=== PATIENT | female | born 1990 | race Caucasian/White ===

== ENCOUNTER → 2017-03-29 17:10 | Observation (INO) ==
[2017-03-29 15:10] LABS: Bilirubin,Urine Negative (Negative); Blood,Urine Negative (Negative); Clarity,Urine Turbid (Clear); Color,Urine Yellow (Yellow); Glucose,Urine (UA) Normal (Normal); Ketones,Urine Negative (Negative); Leukocyte Esterase,Urine Negative (Negative); Nitrite,Urine Negative (Negative); Protein,Urine Negative (Neg-Trace); Specific Gravity,Urine 1.018 (1.010-1.025)
[2017-03-29 15:13] LABS: Bacteria,Urine None Seen per hpf (None-Few); Hyaline Casts,Urine Few per lpf (None-Few); Squamous Epithelial Cell,Urine Many per lpf (None-Few); WBC,Urine 0-3 per hpf (0-3)
[2017-03-29 15:32] LABS: RBC,Urine 0-3 per hpf (0-3)
--- NOTE | 2017-03-29 15:35 | OB/GYN Progress Note ---
Date of Encounter: 03/29/17 Time of Encounter: 15:33 - Assessment and Plan (1) 33 weeks gestation of Current Visit: Yes Status: Acute admit for labor evaluation (2) uterine contractions in third trimester, antepartum Current Visit: Yes Status: Acute IV fluids, Steroids IM patient scheduled in office tomorrow for second dose. Subjective - Subjective Principal diagnosis: labor evaluation Interval history: Patient is 26 y/o at 33w5d presents to labor and delivery from Dr. Nicole for labor evaluation. Patient reported history of contractions and then after intercourse today they became more frequent and stronger. Patient had SVE by Dr. Nicole and was 2 cm dilated. Patient denies any VB or LOF. Patient reports +FM. Patient has history of 37 & 38 week delivery. Antepartum ROS: movement normal, no loss of fluid, no vaginal bleeding, no contractions Objective - Vital Signs Vital Signs: Intake and Output 03/28/17 03/29/17 03/29/17 23:59 07:59 15:59 Other: Weight 53.3 kg Patient Weight 03/29/17 23:59 Weight 53.3 kg - Exam FHR: auscultation normal, category 1 FHR comments: 135 bpm moderate variability, contractions 4-4.5 min apart Auscultation: bilateral: normal Abdomen: Present: normal appearance, soft, gravid Uterus: Present: normal Cervical dilation: [address] Nicole in office - Labs Labs: Abnormal lab results Urine Clarity Turbid (Clear) A 03/29/17 15:01 Urine Urobilinogen 4.0 mg/dL (Normal) H 03/29/17 15:01 Ur Squamous Epith Cells Many per lpf (None-Few) H 03/29/17 15:01
[2017-03-29 15:59] LABS: Basophils % 0.3 %; Eosinophils # 0.1 K/mcL (0.0-0.6); Hematocrit 30.3 % (35.3-44.9); Hemoglobin 10.4 g/dL (11.5-15.4); Immature Granulocytes % 0.9 % (0-4); Immature Platelets 3.5 % (1.1-6.1); Lymphocytes # 2.1 K/mcL (0.6-4.6); Lymphocytes % 22.4 %; Mean Corpuscular HGB Conc 34.3 g/dL (31.6-35.5); Mean Corpuscular Hemoglobin 27.7 pg (28.0-33.3); Mean Corpuscular Volume 80.8 fL (83.0-100.0); Mean Platelet Volume 9.6 fL (9.4-12.4); Monocytes # 0.5 K/mcL (0.0-1.3); Monocytes % 5.3 %; Neutrophils # 6.5 K/mcL (1.6-8.9); Platelet Count 233 K/mcL (140-400); Red Blood Count 3.75 M/mcL (3.82-4.97); Red Cell Distribution Width 13.6 % (11.5-14.5); Segmented Neutrophils % 70.1 %
--- NOTE | 2017-03-29 16:56 | Discharge Summary ---
Date of Encounter: 03/29/17 Time of Encounter: 16:56 - Discharge Diagnosis (1) 33 weeks gestation of Priority: Primary Status: Acute Comments: admitted for labor evaluation (2) uterine contractions in third trimester, antepartum Priority: Secondary Status: Acute Comments: steroids administered. Reactive NST - Discharge Medications Home Medications: Vit/Iron Fumarate/FA [ Tablet] 1 each PO DAILY 04/08/16 [ History] Allergies/Adverse Reactions: Allergies Iodinated Contrast- Oral and IV Dye [Iodinated Contrast Media - IV Dye] Allergy (Verified 04/08/16 16:39) Rash Penicillins Allergy (Verified 04/08/16 16:38) Difficulty Breathing Data Procedures and tests throughout hospitalization: Laboratory Tests 03/29/17 03/29/17 03/29/17 15:01 15:40 15:50 WBC 9.2 RBC 3.75 L Hgb 10.4 L Hct 30.3 L MCV 80.8 L D MCH 27.7 L MCHC 34.3 RDW 13.6 Plt Count 233 MPV 9.6 Immature Gran % 0.9 Seg Neutrophils % 70.1 Lymphocytes % 22.4 Monocytes % 5.3 Eosinophils % 1.0 Basophils % 0.3 Neutrophils # 6.5 Lymphocytes # 2.1 Monocytes # 0.5 Eosinophils # 0.1 Basophils # 0.0 Immature Plt Fraction 3.5 Urine Color Yellow Urine Clarity Turbid A Urine pH 7.0 Ur Specific Temple 1.018 Urine Protein Negative Urine Glucose (UA) Normal Urine Ketones Negative Urine Blood Negative Urine Nitrite Negative Urine Bilirubin Negative Urine Urobilinogen 4.0 H Ur Leukocyte Esterase Negative Urine Microscopic RBC 0-3 Urine Microscopic WBC 0-3 Ur Squamous Epith Cells Many H Urine Bacteria None Seen Hyaline Casts Few Ur Culture Indicated? NO Specimen Rejected MCV Delta Labs on day of discharge: Labs from last 24 hours 03/29/17 03/29/17 03/29/17 15:50 15:40 15:01 WBC 9.2 RBC 3.75 L Hgb 10.4 L Hct 30.3 L MCV 80.8 L D MCH 27.7 L MCHC 34.3 RDW 13.6 Plt Count 233 MPV 9.6 Immature Gran % 0.9 Seg Neutrophils % 70.1 Lymphocytes % 22.4 Monocytes % 5.3 Eosinophils % 1.0 Basophils % 0.3 Neutrophils # 6.5 Lymphocytes # 2.1 Monocytes # 0.5 Eosinophils # 0.1 Basophils # 0.0 Immature Plt Fraction 3.5 Urine Color Yellow Urine Clarity Turbid A Urine pH 7.0 Ur Specific Temple 1.018 Urine Protein Negative Urine Glucose (UA) Normal Urine Ketones Negative Urine Blood Negative Urine Nitrite Negative Urine Bilirubin Negative Urine Urobilinogen 4.0 H Ur Leukocyte Esterase Negative Urine Microscopic RBC 0-3 Urine Microscopic WBC 0-3 Ur Squamous Epith Cells Many H Urine Bacteria None Seen Hyaline Casts Few Ur Culture Indicated? NO Specimen Rejected MCV Delta Date of admission: 03/29/17 14:27 Primary care physician: SISSY Murry Discharging clinician: Cinda Alvarado Anticipated date of discharge: 03/29/17 - Patient Status Disposition: Home, Self-Care Condition: Good Functional capacity at discharge: independent ambulation - Discharge Instructions Follow Up With: Isabella Beavers CNP [Primary Care Provider] - Ricardo Nicole MD [Partnered Physician] - - Diet and Activity Activity: increase activity as tolerated Diet: regular diet Hospital Course [facility] Time Attestation: Total time spent providing and/or coordinating discharge services: Time Spent: Less than 30 minutes Exam - Constitutional General appearance IM: A&O X 3, pleasant, answers questions appropriately - Other Additional findings: SVE: 1.5/80/-2, no cervical change, no bloody show noted. Patient reports contractions has slowed down. FHR 140 bpm moderate variability +15x15 accels no decels noted. Irregular contractions. Reactive. NST - VTE Reasons for not Prescribing Prophylaxis: Treatment not Indicated - Low risk for VTE
[~2017-03-29 17:10] MED LIST: Betamethasone Acet/SodPhos 6 MG/ML MDV IM SCH; Ringers Solution, Lactated 1,000 ML IVC ONE
== END | disposition home or self-care (01) ==
LOC: 1NENULAB
PROVIDERS: ADMIT Obstetrics & Gynecology; ATTEND Obstetrics & Gynecology

== ENCOUNTER 2017-05-01 12:12 | Inpatient (IN) ==
[2017-05-01] MEDS ORDERED: Oxytocin 20 units/ LR 1000 mL 20 UNIT/1,000 ML BAG IVC ONE (12:21)
[2017-05-01] MEDS ORDERED: Lidocaine 1% 20 ML MDV ONE (12:47)
[2017-05-01] MEDS: Oxytocin 20 units/ LR 1000 mL 20 UNIT/1,000 ML BAG IVC SCH ×2 (12:53→14:33)
--- NOTE | 2017-05-01 13:02 | OB/GYN History & Physical ---
Date of Encounter: 05/01/17 Time of Encounter: 13:00 Assessment and Plan (1) Active labor at term Current visit: Yes Status: Acute (2) Rh negative status during in third trimester Current visit: Yes Status: Acute (3) Short interval between pregnancies affecting , antepartum Current visit: Yes Status: Acute (4) 38 weeks gestation of Current visit: No Status: Acute History of Present Illness HPI: Ms. Bagley is a 26 year old female with an EDC of 05/12/17 at 38 3/7 weeks EGA presenting to L&D in active labor and completely dilated. Very uncomfortable. Onset of contractions around 0830 hours this a.m. PN course uncomplicated. GBS negative. Rubella Immune, Rh negative. Past Med Surg Social Fam HX - Past Medical History Medical history: no medical history Psychiatric history: no psych history - Past Surgical History Surgical History: no surgical history - Social History Smoking Status: Former smoker Smokeless Tobacco Status: No Alcohol use: none Drug use: none - Family History Mother Living Status: Still Living Hx Family Cardiac Disorders: No Hx Family Respiratory Disorders: No Hx Family Cancer: No Hx Family GI Disorders: No Hx Family Endocrine Disorder: No Hx Family Neuromuscular Disorders: No Hx Family Neurologic Disorders: No Hx Family HEENT Disorders: No Hx Family Autoimmune Disorders: No Medications and Allergies Vit/Iron Fumarate/FA [ Tablet] 1 each PO DAILY 04/08/16 [ History] Allergies Iodinated Contrast- Oral and IV Dye [Iodinated Contrast Media - IV Dye] Allergy (Verified 04/08/16 16:39) Rash Penicillins Allergy (Verified 04/08/16 16:38) Difficulty Breathing Results All other labs normal.
--- NOTE | 2017-05-01 13:06 | OB/GYN Procedure Note ---
Delivery - Delivery Date: 05/01/17 Provider: Bill Hansen Intrapartum events: precipitous labor- <3hr Delivery induction: none Delivery monitor: external FHT, external uterine Anesthesia: none Estimated Blood Loss: 100 - Infant (s) Infant A Infant Delivery Date: 05/01/17 Delivery Time: 12:49 Presentation: vertex Position: NORA Route of delivery: Gender: Female Viability: Viable Pounds: 6 Ounces: 0 Weight Gram: 2725 kg at 1 minute: 9 at 5 mins: 9 Shoulder Dystocia: not encountered Specimens collected: cord blood Placenta: spontaneous Cord: 3 umbilical vessels - Repair Episiotomy: none Laceration Description: None - Complications Delivery complications: none - Disposition Mom disposition: stable in LDR disposition: stable in LDR - Comments Comments: Patient arrived to labor and delivery completely dilated and in active labor within an hour she had spontaneous rupture the membranes was a spontaneous vaginal delivery of a viable female infant. scores are 9 and 9 at one and 5 minutes respectively, and the infant weighed 6 pounds. The placenta delivered spontaneously and appeared to be intact. All sponge needle and is Reported as correct. Estimated blood loss 100 mL. No lacerations were present. No shoulder dystocia was encountered, no nuchal cord was present.
[2017-05-01] MEDS ORDERED: Rho Immune Globulin 1,500 UNIT SYRINGE IM PRN (13:14)
[2017-05-01] MEDS ORDERED: Acetaminophen 325 MG TABLET PO PRN (13:14)
[2017-05-01] MEDS ORDERED: Naloxone 0.4 MG/ML INJ IVP PRN (13:17)
[2017-05-01] MEDS: Ibuprofen 600 MG TABLET PO PRN ×2 (13:31→20:33)
[2017-05-01 13:53] LABS: Basophils % 0.2 %; Eosinophils % 0.2 %; Hematocrit 34.5 % (35.3-44.9); Hemoglobin 11.7 g/dL (11.5-15.4); Immature Granulocytes % 0.6 % (0-4); Lymphocytes # 2.2 K/mcL (0.6-4.6); Lymphocytes % 19.1 %; Mean Corpuscular HGB Conc 33.9 g/dL (31.6-35.5); Mean Corpuscular Hemoglobin 26.1 pg (28.0-33.3); Mean Platelet Volume 10.5 fL (9.4-12.4); Monocytes # 0.4 K/mcL (0.0-1.3); Monocytes % 3.7 %; Neutrophils # 8.8 K/mcL (1.6-8.9); Platelet Count 216 K/mcL (140-400); Red Blood Count 4.48 M/mcL (3.82-4.97); Red Cell Distribution Width 14.5 % (11.5-14.5); Segmented Neutrophils % 76.2 %
[2017-05-02] MEDS: Ibuprofen 600 MG TABLET PO PRN (03:39)
[2017-05-02 05:32] LABS: Basophils % 0.4 %; Eosinophils # 0.1 K/mcL (0.0-0.6); Eosinophils % 0.9 %; Hematocrit 28.7 % (35.3-44.9); Immature Granulocytes % 0.7 % (0-4); Lymphocytes # 3.2 K/mcL (0.6-4.6); Lymphocytes % 29.8 %; Mean Corpuscular HGB Conc 33.1 g/dL (31.6-35.5); Mean Corpuscular Hemoglobin 25.9 pg (28.0-33.3); Mean Corpuscular Volume 78.2 fL (83.0-100.0); Mean Platelet Volume 10.2 fL (9.4-12.4); Monocytes # 0.6 K/mcL (0.0-1.3); Monocytes % 5.7 %; Neutrophils # 6.7 K/mcL (1.6-8.9); Platelet Count 193 K/mcL (140-400); Red Blood Count 3.67 M/mcL (3.82-4.97); Red Cell Distribution Width 14.4 % (11.5-14.5); Segmented Neutrophils % 62.5 %
[2017-05-02 05:36] LABS: Hemoglobin 9.5 g/dL (11.5-15.4)
[2017-05-02 08:03] VITALS: BP 102/71
--- NOTE | 2017-05-02 08:24 | Discharge Summary ---
Date of Encounter: 05/02/17 Time of Encounter: 08:24 - Discharge Diagnosis (1) Rh negative, delivered, current hospitalization Priority: Secondary Status: Acute Comments: A negtive. No Rhogam needed. (2) Vaginal delivery Priority: Primary Status: Acute Comments: Pt meeting milestones. Anticipate discharge home this afternoon. - Discharge Medications Prescriptions: Ibuprofen [Motrin] 600 mg PO Q6HR PRN #60 tab PRN Reason: Cramping Docusate [Colace] 100 mg PO BID PRN #60 PRN Reason: Constipation Home Medications: Vit/Iron Fumarate/FA [ Tablet] 1 each PO DAILY 04/08/16 [ History] Docusate [Colace] 100 mg PO BID PRN #60 05/02/17 [Rx] Ibuprofen [Motrin] 600 mg PO Q6HR PRN #60 tab 05/02/17 [Rx] Allergies/Adverse Reactions: Allergies Iodinated Contrast- Oral and IV Dye [Iodinated Contrast Media - IV Dye] Allergy (Verified 04/08/16 16:39) Rash Penicillins Allergy (Verified 04/08/16 16:38) Difficulty Breathing Data Procedures and tests throughout hospitalization: Laboratory Tests 05/01/17 05/01/17 05/02/17 12:20 13:00 05:15 WBC 11.5 H 10.7 RBC 4.48 3.67 L Hgb 11.7 9.5 L D Hct 34.5 L 28.7 L MCV 77.0 L 78.2 L MCH 26.1 L 25.9 L MCHC 33.9 33.1 RDW 14.5 14.4 Plt Count 216 193 MPV 10.5 10.2 Immature Gran % 0.6 0.7 Seg Neutrophils % 76.2 62.5 Lymphocytes % 19.1 29.8 Monocytes % 3.7 5.7 Eosinophils % 0.2 0.9 Basophils % 0.2 0.4 Neutrophils # 8.8 6.7 Lymphocytes # 2.2 3.2 Monocytes # 0.4 0.6 Eosinophils # 0.0 0.1 Basophils # 0.0 0.0 Baby's Blood Type A RH NEGATIVE Mother's Blood Type A RH NEGATIVE Rhogam Indicated NO Labs on day of discharge: Labs from last 24 hours 05/02/17 05/01/17 05/01/17 05:15 13:00 12:20 WBC 10.7 11.5 H RBC 3.67 L 4.48 Hgb 9.5 L D 11.7 Hct 28.7 L 34.5 L MCV 78.2 L 77.0 L MCH 25.9 L 26.1 L MCHC 33.1 33.9 RDW 14.4 14.5 Plt Count 193 216 MPV 10.2 10.5 Immature Gran % 0.7 0.6 Seg Neutrophils % 62.5 76.2 Lymphocytes % 29.8 19.1 Monocytes % 5.7 3.7 Eosinophils % 0.9 0.2 Basophils % 0.4 0.2 Neutrophils # 6.7 8.8 Lymphocytes # 3.2 2.2 Monocytes # 0.6 0.4 Eosinophils # 0.1 0.0 Basophils # 0.0 0.0 Baby's Blood Type A RH NEGATIVE Mother's Blood Type A RH NEGATIVE Rhogam Indicated NO Date of admission: 05/01/17 12:12 Primary care physician: PCP NONE Consults: 05/01/17 13:14 Consult to Computer Tech [CONS] Routine Comment: Vaginal delivery, consult needed Discharging clinician: Jannette Jacques Anticipated date of discharge: 05/02/17 - Patient Status Disposition: Home, Self-Care Condition: Good Functional capacity at discharge: independent ambulation Overall status at discharge: patient is progressing back to baseline - Discharge Instructions Instructions: Vaginal Delivery (DC) Follow Up With: NONE,PCP [Primary Care Provider] - Ricardo Nicole MD [Partnered Physician] - Additional Instructions: Perineal Care: Always wipe front to back Change your pad frequently Use your carolyne bottle with warm water and spray front to back Do not douche, use tampons, have sexual intercourse or put anything in your vagina for 4-6 weeks after delivery Bleeding: Vaginal bleeding can last up to 6 weeks Your menstrual period may return as early as 6 weeks after you are discharged from the hospital Kaitlin/Stitches Care: Vaginal Delivery Vaginal stitches will dissolve within 4-6 weeks Follow perineal care instructions Care Stitches will dissolve on their own If you have kaitlin, they will need to be removed in the doctors office within 5-7 days. You may shower with stitches or kaitlin Drip plan or soapy water over the incision to clean. Pat dry gently with a clean towel. Make sure you completely dry under the skin folds DO NOT USE powders, lotions, rubbing alcohol or hydrogen peroxide on or around your incision. This will slow your wound healing It is normal to have soreness, burning, tingling, itchiness and/or numbness as your incision heals Activity: Rest frequently Do not lift anything heavier than a gallon of milk, up to 10-15 pounds No [address] for 1-2 weeks for Vaginal delivery No driving for 2-4 weeks for delivery Take stairs slowly, one at a time Gradually increase your daily activity until you are back to your normal routine Do not exercise until you have had your follow-up appointment Bathing: Take a shower daily Do not take a tub bath for the first 4 weeks Diet: Drink plenty of water and fruit juices Eat a well-balanced diet with foods high in fiber such as fruits and vegetables Depression: Your hormones have a major impact on your feelings and emotions. Hormone imbalance may cause changes in your mood, creating unfamiliar thoughts and actions. Support is available to help you understand and cope with these feelings and mood changes. If you answer yes to any of the following questions, please call your health care provider: Are you having trouble sleeping? Are you feeling isolated? Have you lost your appetite? Are you having thoughts of hurting yourself or others? WARNING SIGNS: Heavy bleeding from the vagina (blood is bright red and soaks a sanitary pad in an hour or less.) Passing a blood clot larger than your fist Discharge from the vagina that has a bad odor Temperature over 100.4 F, or if you feel cold and have chills An episiotomy site that is warm, swollen or oozing. Use a mirror if needed Urination (pee) that is painful, very red and swollen or leaking fluid An incision that is painful, very red and swollen and leaking fluid An incision that has come open Breasts that are painful or full with flu like symptoms Redness, warmth or swelling in the calf of your leg Trouble breathing, dizziness, visual disturbance or faintness *Notify your health care provider immediately or go to the nearest Emergency Room if you experience any of the above signs.* To contact the nurses station 24 hours a day, For non-urgent, routine questions, please call the office at - Diet and Activity Activity: increase activity as tolerated Diet: advance to your usual diet Hospital Course Reason for admission: active labor Delivery: Episiotomy: none Laceration: none Other procedures: none complications: none Discharge diagnosis: IUP at term delivered baby: female Hospital course: - Delivery Date: 05/01/17 Provider: Bill Hansen Intrapartum events: precipitous labor- <3hr Delivery induction: none Delivery monitor: external FHT, external uterine Anesthesia: none Estimated Blood Loss: 100 - Infant (s) A Delivery Date: 05/01/17 Infant Delivery Time: 12:49 Presentation: vertex Position: NORA Route of delivery: Gender: Female Viability: Viable Pounds: 6 Ounces: 0 Weight Gram: 2725 kg at 1 minute: 9 at 5 mins: 9 Shoulder Dystocia: not encountered Specimens collected: cord blood Placenta: spontaneous Cord: 3 umbilical vessels - Repair Episiotomy: none Laceration Description: None - Complications Delivery complications: none - Disposition Mom disposition: home PPD#1 disposition: home with mother, bottle feeding Time Attestation: Total time spent providing and/or coordinating discharge services: Time Spent: Less than 30 minutes Exam - Constitutional Vitals: Temp Pulse Resp BP Pulse Ox 97.9 F 71 18 102/71 98 05/02/17 07:30 05/02/17 07:30 05/02/17 07:30 05/02/17 07:30 05/02/17 03:44 General appearance IM: A&O X 3 - Respiratory Respiratory exam: Present: CTAB - Cardiovascular Cardiovascular exam IM: Present: RRR - GI/Abdominal GI/Abdominal exam IM: soft - Rectal Rectal exam: deferred - Uterine Tone: Firm Uterus Position: 2 Fingers Below Umbilicus - Extremities Exam Extremities exam IM: Present: normal inspection - Neurological Exam Neurological exam: normal gait, oriented X3 - Psychiatric Additional comments: reports good mood
[2017-05-02] MEDS ORDERED: Prenatal Vit/FA 1 EACH TABLET PO SCH (09:00)
== END 2017-05-02 16:00 | disposition home or self-care (01) | DRG 560 ==
LOC: 1NENULAB 12:12 → 1NENUOBS 15:31

== ENCOUNTER → 2019-08-23 14:35 | Observation (INO) ==
[2019-08-23 12:49] LABS: Amphetamine Screen,Urine Negative ng/mL (Cutoff=1000); Barbiturate Screen,Urine Negative ng/mL (Cutoff=200); Benzodiazepines Screen,Urine Negative ng/mL (Cutoff=200); Cannabinoid Screen,Urine Negative ng/mL (Cutoff = 50); Cocaine Screen,Urine Negative ng/mL (Cutoff= 300); Opiate Screen,Urine Negative ng/mL (Cutoff=300); Phencyclidine Screen,Urine Negative ng/mL (Cutoff=25)
== END | disposition home or self-care (01) ==
LOC: 1NENULAB
PROVIDERS: ADMIT Registered Nurse; ATTEND Registered Nurse